=== PATIENT | female | born 1940 | race Caucasian/White ===

== ENCOUNTER → 2024-04-24 09:00 | Outpatient (REF) | payer MEDICARE, OTHER, SELFPAY | LOC: RAD 09:00 | PROVIDERS: ATTENDING PHYSICIAN Internal Medicine Hematology & Oncology; FAMILY PHYSICIAN Family Medicine | DX: R59.0 Localized enlarged lymph nodes (principal) | CPT/HCPCS: 70490; 71250 ==

== ENCOUNTER → 2024-05-13 08:22 | Outpatient (REF) | payer MEDICARE, OTHER, SELFPAY | LOC: RAD 08:22 | PROVIDERS: ATTENDING PHYSICIAN Obstetrics & Gynecology Gynecology; FAMILY PHYSICIAN Family Medicine | DX: Z15.01 Genetic susceptibility to malignant neoplasm of breast (principal); Z80.41 Family history of malignant neoplasm of ovary; C56.9 Malignant neoplasm of unspecified ovary | CPT/HCPCS: 76830; 76856 ==

== ENCOUNTER → 2024-09-01 08:24 | Outpatient (REF) | payer MEDICARE, OTHER, SELFPAY | LOC: WDC 08:24 | PROVIDERS: ATTENDING PHYSICIAN Obstetrics & Gynecology Gynecology | DX: Z12.31 Encounter for screening mammogram for malignant neoplasm of breast (principal) | CPT/HCPCS: 77063; 77067 ==

== ENCOUNTER → 2024-09-03 08:49 | Outpatient (REF) | payer MEDICARE, OTHER, SELFPAY | LOC: WDC 08:49 | PROVIDERS: ATTENDING PHYSICIAN Obstetrics & Gynecology Gynecology; FAMILY PHYSICIAN Family Medicine | DX: R92.2 Inconclusive mammogram (principal) | CPT/HCPCS: 76641 ==

== ENCOUNTER 2025-06-15 11:13 | Emergency (ER) | payer MEDICARE, OTHER, SELFPAY ==
[2025-06-15 11:14] VITALS: BP 175/81
--- NOTE | 2025-06-15 12:46 | ED.GENMED ---
History of Present Illness
General
Chief Complaint: Anal/Rectal Problem
Source: patient
Exam Limitations: none
Time Seen by Provider: 06/15/25 12:32
History of Present Illness
History of Present Illness:
84-year-old female ongoing rectal pain. Usually with a bowel movement. Usually worse in the morning when she has a bowel movement. She saw colorectal PA about 2 months ago for constipation. They did an anoscopy. During the anoscopy she
developed severe perirectal pain which has persisted on a daily basis since then. She has been tolerating it at home. Today she went to the colorectal office with the hopes of getting seen. They could not see her but the nurse prescribed
lidocaine cream and said that she should go to the ER. She apparently has an appointment tomorrow with the PA. She has some nausea with this no fever chills abdominal pain or other complaints.
Past History
Past History
ED Past Medical History: HTN and Hypercholesterolemia
ED Past Surgical History: Cholecystectomy
Social History
Living: with family
Review of Systems
Review of Systems
All Other Systems: Not applicable
Constitutional: Denies fever or chills
ABD/GI: Denies abdominal pain or diarrhea
Phy Exam
Physical Exam
Physical Exam:
GENERAL: Alert and oriented in no apparent distress
EYE: Orbits normal.
NECK: Supple
CARDIAC: Regular rate and rhythm without any obvious murmurs.
LUNGS: Clear breath sounds,normal
ABDOMEN: Soft, without focal tenderness or distention. Small noninflamed hemorrhoids externally. No obvious fissure. No obvious perirectal abscess. No tenderness on external exam. Gentle finger rectal exam was unremarkable. I cannot appreciate
any unusual tenderness swelling abscess etc.
NEUROLOGICAL: Alert and oriented , grossly non-focal
SKIN: Warm and dry
PSYCH: Normal and appropriate interaction.
Course
Orders/Labs/Results
Orders:
Orders
06/15/25 12:45
IV Insert/Care/Rem.- Treatment PRN
06/15/25 12:49
Complete Blood Count/With Diff Urgent
Comprehensive Metabolic Panel Urgent
06/15/25 13:33
CT Abd/pel Without Iv Or Oral Urgent
Comment:
Reason For Exam: Pelvic/anal pain
06/15/25 15:01
Urinalysis Reflex To Culture Urgent
Date Specimen was Collected: 06/15/25
Time Specimen was Collected: 13:49
Abnormal Lab Results
06/15/25
12:49
MCHC 32.8 L g/dL
(33.0-37.0)
Absolute Lymphs (auto) 1.1 L 10^3/uL
(1.2-3.4)
Lymphocytes % 16.7 L %
(20.5-51.1)
Chloride 111 H mmol/L
(98-107)
BUN 19 H mg/dl
(7-17)
Glucose 114 H mg/dl
(70-99)
06/15/25 12:49
06/15/25 12:49
Vital Signs
Initial and Last Documented VS:
Initial Vital Signs
Temp Pulse Resp BP Pulse Ox
98.4 F 78 16 175/81 98
06/15/25 11:14 06/15/25 11:14 06/15/25 11:14 06/15/25 11:14 06/15/25 11:14
Last Documented Vital Signs
Temp Pulse Resp BP Pulse Ox
98.4 F 75 18 177/81 98
06/15/25 11:14 06/15/25 16:52 06/15/25 16:52 06/15/25 16:52 06/15/25 16:52
MDM/Problems Addressed
Differential Diagnosis Includes:
Ongoing perirectal pain following a anoscopy almost 2 months ago. Also some nausea. Abdomen is nontender. Nausea likely secondary to her discomfort. No systemic symptoms. Nothing obvious on exam to explain it. I would suspect an anal fissure.
With ongoing symptoms we will check labs and get a CT of the pelvis. Colorectal also notified
*Radiology
Radiology exam reviewed: radiology read reviewed (Possible diverticulitis by CT with some stranding and inflammatory changes. Severe diverticulosis. Perirectal area normal)
*Pulse Oximetry
SaO2: 98
Oxygen Mode of Delivery: Room air
Patient hypoxic: no
*Critical Care Note
Total Time (30-74mins, 75-104mins- exclusive of procedures): Not Applicable
Update Note
Update Note:
Multiple discussions on treating her possible diverticulitis. He has issues with all antibiotics that we discussed as reasonable coverage for diverticulitis including penicillins quinolones sulfas. Given that there is some debate on treating mild
diverticulitis, not a clear-cut diverticulitis diagnosis along with seeing colorectal tomorrow reasonable to hold off for their opinion. She is comfortable with this approach not convinced the CT findings support where her pain is. She still may
have a fissure
ED Attending Note
-
Portions of this chart may have been created with voice recognition software.� Occasional wrong word or��sound alike� substitutions may have occurred due to the inherent limitations of voice recognition software.
Discharge Plan
Departure
Patient Disposition: Home (Routine Discharge)
Date of Disposition: 06/15/25
Time of Disposition: 16:26
Patient with high blood pressure during this ER visit?: Yes
Discharge Problem:
Anal pain, Possible fissure, Possible diverticulitis , Severe diverticulosis
Instructions: Anal Abscess and Fistula, Adult (DC), BLOOD PRESSURE
Prescriptions:
No Action
sucralfate 1 GRAM tablet
1 g PO ACHS
cyanocobalamin (vitamin B-12) 1,000 MCG tablet
1,000 mcg PO DAILY
esomeprazole magnesium [Nexium] 40 MG capsule,delayed release(DR/EC)
40 mg PO DAILY
calcium carbonate [Calcium 500] 500 MG tablet,chewable
500 mg PO DAILY
olmesartan 20 MG tablet
10 mg PO DAILY
cholecalciferol (vitamin D3) 1,000 UNITS tablet
1,000 units PO DAILY
nebivolol 2.5 MG tablet
2.5 mg PO DAILY
magnesium oxide 400 MG capsule
400 mg PO DAILY
multivitamin with folic acid [Tab-A-Alva] 1 TABLET tablet
1 tab PO DAILY
pyridoxine (vitamin B6) 100 MG/2.5 ML liquid
100 mg PO DAILY
Referrals:
Bhavesh Meza DO [Family Provider, Family Practice]
Activity Restrictions/Additional Instructions:
See the colorectal specialist tomorrow
You can discuss antibiotics versus observation for the CT findings we discussed
Return sooner with increased pain fever vomiting or any other concerning
As we discussed, I am not convinced the CT findings explain your anal pain. There may still be a small fissure there.
Interventions
Interventions:
*Risk Screen - Suicide Last Done: 06/15/25 11:14
*General Assessment Last Done: 06/15/25 14:04
*Neglect/Abuse Screening Last Done: 06/15/25 11:14
*ED- Fall Risk Assessment Last Done: 06/15/25 14:04
*Nursing Disposition Last Done: 06/15/25 16:54
ED-Skin Assessment Last Done: 06/15/25 14:04
Discharge Date and Time
Discharge Date/Time: 06/15/25 16:54
Print Language: BAHAMIAN
[2025-06-15 13:04] LABS: Hematocrit 39.3 % (37.0-47.0); Hemoglobin 12.9 g/dL (12.0-16.0); Mean Corp Hgb Conc. 32.8 g/dL (33.0-37.0); Mean Corpuscular Volume 84.3 fL (81.0-99.0); Nucleated Red Blood Cells % 0 %; Platelet Count 282 10^3/uL (130-400); Red Cell Dist. Width 14.1 % (11.5-14.5)
[2025-06-15 13:15] LABS: AST (SGOT) 30 U/L (14-36); Albumin 3.8 g/dl (3.5-5.0); Alkaline Phosphatase 70 U/L (38-126); Blood Urea Nitrogen 19 mg/dl (7-17); Calcium 10.1 mg/dl (8.4-10.2); Carbon Dioxide 25 mmol/L (22-30); Chloride 111 mmol/L (98-107); Glucose 114 mg/dl (70-99); Potassium 4.1 mmol/L (3.5-5.1); Sodium 138 mmol/L (135-145); Total Protein 6.4 g/dl (6.3-8.2); eGFR > 60.00
[2025-06-15 13:50] LABS: ALT (SGPT) 25 U/L (0-35)
[2025-06-15 15:06] LABS: Urine Character Clear (Clear)
[2025-06-15 16:52] VITALS: BP 177/81
== END 2025-06-15 16:54 | disposition home or self-care (01) ==
LOC: EMR 11:13
PROVIDERS: EMERGENCY PHYSICIAN Emergency Medicine; FAMILY PHYSICIAN Family Medicine
DX: K62.89 Other specified diseases of anus and rectum (principal); R11.0 Nausea; K64.4 Residual hemorrhoidal skin tags; K57.90 Diverticulosis of intestine, part unspecified, without perforation or abscess without bleeding; E78.00 Pure hypercholesterolemia, unspecified; I10 Essential (primary) hypertension; Z90.49 Acquired absence of other specified parts of digestive tract; Z88.0 Allergy status to penicillin; Z88.2 Allergy status to sulfonamides; Z91.041 Radiographic dye allergy status
CPT/HCPCS: 99284; 74176; 80053; 81003; 85025

== ENCOUNTER → 2025-08-03 10:57 | Outpatient (REF) | payer MEDICARE, OTHER, SELFPAY | LOC: WDC 10:57 | PROVIDERS: ATTENDING PHYSICIAN Family Medicine | DX: R92.2 Inconclusive mammogram (principal) | CPT/HCPCS: 76641 ==

== ENCOUNTER → 2025-08-31 15:19 | Outpatient (REF) | payer MEDICARE, OTHER, SELFPAY | LOC: WDC 15:19 | PROVIDERS: ATTENDING PHYSICIAN Family Medicine | DX: Z12.31 Encounter for screening mammogram for malignant neoplasm of breast (principal) | CPT/HCPCS: 77063; 77067 ==